=== PATIENT | male | born 1940 | race Caucasian/White ===

== ENCOUNTER 2019-01-26 08:37 | Day surgery (SDC) | payer MEDICARE, OTHER, SELFPAY ==
[2019-01-25 12:40] VITALS: BMI 26.2
[2019-01-26] VITALS (11 sets, daily range): BP systolic 102–157; BP diastolic 62–86; PULSE 58–76; RESP 9–16; TEMP 36.4–36.9; O2SAT 93–100; BMI 25.2
[2019-01-26] MEDS: LACTATED RINGERS 1,000 ML 42 ML IV (09:45)
--- NOTE | 2019-01-26 10:41 | PM.PREOP ---
Pre-operative Note Interval Note History & Physical reviewed/Exam performed by Physician: Yes Changes to H&P: No
[2019-01-26] MEDS: CEFAZOLIN 2 GM/100 ML FROZ.PIGGY IV (11:12)
--- NOTE | 2019-01-26 11:34 | SUR.OPER ---
Supine on padded OR bed, head on pillow, arms secured on padded arm boards at <90 degrees abduction, legs uncrossed, safety belt at thigh, pillow under knees, gel pad under heels.
[2019-01-26] MEDS: BUPIVACAINE 0.5% W/ EPI (PF) VIAL 30 ML INJ (11:52)
--- NOTE | 2019-01-26 13:28 | PM.OP.1 ---
Operative Date/Time/Diagnoses Date of procedure: 01/26/19 Time of procedure: 11:31 Pre-op diagnosis: Left Dupuytren's contracture Post-op diagnosis: same Procedure & Clinicians Procedure: Dupuytren contracture release involving the left small, ring, middle, thumb Same procedure as scheduled: Yes Indications: Dupuytren's Surgeon: Homer Pereira Click Yes if Unassisted: Yes Anesthesia Type: General Operative Notes Findings: Significant contractures involving the MCP and PIP joint of the ring and small finger. Contracture involving the MCP joint of the middle finger. A thick cord formation along the radial border of the thumb. Closure Type: primary Specimen(s): none sent Estimated Blood Loss (mL): 2 Blood products transfused: none Tourniquet time (min): 91 Procedure in detail: On date of service, patient was met in the holding area. The surgery was once again discussed with the patient and any remaining questions they had were answered fully. The operative site was signed and witnessed by the OR staff. Patient was taken back to the operating theater and placed on the operating table in a supine position. Great care was taken to ensure that all bony prominences were properly padded. A timeout was performed verifying patient's name, procedure, and operative site. A well-padded tourniquet was placed up along the right upper extremity. The left arm was then prepped and draped in the normal sterile fashion. An Esmarch was used to exsanguinate the limb the tourniquet turned up to 250 mmHg. A Micah incision was made starting at the crease for the 4th finger DIP joint and going proximal to the proximal Jones crease. A 15 blade was used to incise the skin and fascial tissue. Pickups and tenotomies were used to dissect down through the fascia. The neurovascular bundles were identified proximally and the nerve was dissected free distally throughout the entire incision. The radial digital nerve was uninvolved with the Dupuytren's tissue. But the ulnar digital nerve was quite involved and the lateral cord causing a contracture to the PIP joint. Great care was taken to ensure that the nerve was freed from all diseased tissue and kept out of harms way. Once we had a good exposure of the finger and palm, this gave us a good visualization of the Dupuytren's tissue. A palmar as well as finger fasciectomy was performed removing the cord formation as well as nodule formation in the palm and the lateral cord in the finger. Once all the tissue was removed, we could easily fully extended at the MCP joint as well as PIP joint. Next, we next turned our attention to the smal finger. A similar incision was made starting at the crease of the DIP joint and going proximally. Patient's radial and ulnar digital nerve was involved with the cord. The patient had lateral bands on both sides of the joint. Great care was taken to ensure that the digital nerves were dissected from the diseased tissue. Once we had the digital nerves free and protected, the diseased tissue was removed. This allowed us to fully extend the MCP as well as PIP joints. Next, we turned our attention to the middle finger. Palmar incision was used to remove the cord formation in the palm of the hand. The cord was centered over the flexor tendon at and there was not much nerve involvement. The cord was sharply excised from the flexor tendon sheath allowing us to fully extend the MCP joint of the middle finger. Next, we turned our attention to the thumb. A incision was made centered over the cord involving the lateral border of the thumb. Fifteen blade was used to incise through skin and fascial tissue. The skin was sharply dissected off the cord formation. The radial digital nerve was identified and protected. Once we had good visualization of the radial lateral cord, it was sharply incised and removed. Next, the wounds were copiously irrigated and then closed with a 5-0 nylon suture. The hand was then cleaned, dried, and dressed.Patient was placed into a splint and taken to the PACU in stable condition. Complications: none Condition: stable Disposition: PACU Plan for aftercare: Patient will follow our standard postoperative protocol for Dupuytren's contracture release
[2019-01-26] MEDS: HYDROCODONE/ACET 5/325 TABLET 1 TAB PO (13:35)
[2019-01-26] MEDS: fentaNYL 100 MCG/2 ML INJ 50 MCG IV (13:45)
--- NOTE | 2019-01-26 13:53 | SUR.PHASEI ---
PT TOLERATED SIPS OF JUICE AND APPLESAUCE, LEFT ARM REMAINS ELEVATED ON PILLOW WITH ICE PACK TO HAND, ON THUMB AREA OF DRESSING NO FURTHER DRAINAGE NOTED, PT HENNA TO WIGGLE FINGERS AND THUMB, DR COLBY IN TO SPEAK WITH PT.
== END 2019-01-26 14:20 | disposition home or self-care (01) ==
PROVIDERS: PCP Family Medicine; Visit Provider Orthopaedic Surgery
PROC: (CPT 26045; principal; 2019-01-26 10:30)
DX: M72.0 Palmar fascial fibromatosis [Dupuytren] (principal); J44.9 Chronic obstructive pulmonary disease, unspecified
CPT/HCPCS: 26123; 26125 ×3; J0690; J2405; J2704; J3010